=== PATIENT | female | born 1990 | race Caucasian/White ===

== ENCOUNTER 2017-02-15 18:03 | Emergency (ER) | payer OTHER ==
[~2017-02-15] VITALS: Ht 170.2 cm; Wt 90.9 kg
[~2017-02-15 18:03] MED LIST: IRON1TAB97 PO
[2017-02-15 18:07] VITALS: BP 148/107; PULSE 99; RESP 18; O2SAT 96
[2017-02-15] MEDS ORDERED: 0.9% Sodium Chloride 1,000 ML IV ONE (20:03)
[2017-02-15] MEDS ORDERED: MetoCLOpramide 5 mg/mL 2 mL Inj IVPUSH ONE (20:05)
[2017-02-15 20:28] LABS: APPEARANCE,URINE HAZY (CLEAR,HAZY); COLOR,URINE YELLOW (YELLOW); OCCULT BLOOD,URINE NEGATIVE (NEGATIVE); PH,URINE 6.5 (5.0-8.0); UROBILINOGEN,URINE NORMAL (NORMAL)
--- NOTE | 2017-02-15 21:41 | ED.REPORT ---
HPI-Headache Date of Service February 15, 2017 ED Provider: Broderick Leal MD Pt is a 26 y/o female w/ a hx of migraines presenting to the ED c/o [place] onset 4 days ago. She states it feels like something is jammed into her head on the left side. She has been experiencing migraine headaches for the past year and this headache is similar in character but increased in severity. Pt c/o associated photophobia. Pt denies phonophobia, fever, chills, neck pain, head trauma, nausea, vomiting, recent travel, numbness or weakness, vision changes. Nursing Notes Stated Complaint: MIGRAINES/PAIN IN BOTH EARS Chief Complaint: Headache Nursing Notes Reviewed: Yes Allergies: Coded Allergies: No Known Allergies (Verified Allergy, Unknown, 02/15/17) Scheduled Iron,Carbonyl/Vit C/Vit B12/FA (Iron 100 Plus Tablet) 1 Each Tablet 2 EACH PO BID General Time Seen by MD: 19:27 Chief Complaint Headache Hx Obtained From: Patient Arrived By: Walk-in Sudden in Onset?: No Onset Occurred: 4 days ago Symptom Duration: Since onset Location: : Generalized Quality: Painful Severity: Current: Moderate Severity: Maximum: Moderate Similar Sx Previous: Yes Past Medical History Past Medical History Anemia Recurrent right ear infections Migraines Past Surgical History Cholecystectomy Family History Noncontributory Smoking History Current Every Day Smoker Social History Alcohol Use: Denies alcohol use Drug Use: Denies drug use Other Social History: Ambulatory Status Independent Review of Systems Constitutional: Denies: Chills, Fever Musculoskeletal: Denies: Myalgia, Neck pain Neurologic: Reports: Headache, Denies: Bladder dysfunction, Bowel dysfunction, Focal weakness, Lightheaded, Numbness, Vision change, Weakness Complete sys rev & neg: except as marked. Physical Exam Initial Vital Signs Vital Signs (First) Date Time Temp Pulse Resp B/P Pulse Ox O2 Delivery O2 Flow Rate FiO2 02/15/17 18:07 37.0 99 18 148/107 96 Room Air Initial VS: Reviewed, Vital signs normal ENT: Mucous membranes moist, Conjunctiva normal, No scleral icterus Respiratory: Breath sounds normal, Clear to auscultation, No respiratory distress Cardiovascular: Regular rate & rhythm, Heart sounds normal, Intact distal pulses Abdomen / GI: Soft, Non-tender Extremities: Vascular intact, Neuro intact, No swelling, No tenderness Skin: Warm, Dry, No cyanosis Psychiatric: Mood/affect normal, Behavior normal, Normal thought content General/Constitutional: Awake, Alert, No acute distress, Well appearing, Cooperative, Not toxic appearing Head / Eyes: Atraumatic, Normocephalic, PERRL Neck: Atraumatic, Supple, No meningismus, Full range of motion Neurologic: Oriented X3, Speech NL, No motor deficits, No sensory deficits, CN II - XII intact, Cerebellar NL, Memory NL Interpretation & Diagnostics Lab Results Interpretation Test 02/15/17 20:13 Urine Color Yellow (YELLOW) Urine Appearance Hazy (CLEAR,HAZY) Urine pH 6.5 (5.0-8.0) Urine Specific Chancellor 1.020 (1.003-1.035) Urine Protein Negativemg/dL (NEG,TRACE) Urine Glucose (UA) Negativemg/dL (NEGATIVE) Urine Ketones Negativemg/dL (NEGATIVE) Urine Occult Blood Negative (NEGATIVE) Urine Nitrite Positive (NEGATIVE) Urine Bilirubin Negative (NEGATIVE) Urine Urobilinogen Normalmg/dL (NORMAL) Urine Leukocyte Esterase Negative (NEGATIVE) Urine RBC 0-2/hpf (0-2) Urine WBC 0-5/hpf (0-5) Urine Epithelial Cells None/hpf (NONE-MOD) Urine Crystals None seen (NONE SEEN) Urine Bacteria Moderate/hpf (NONE-FEW) Urine Hyaline Casts None/lpf (NONE) Urine Granular Casts None seen (NONE SEEN) Urine Waxy Casts None seen (NONE SEEN) Urine Red Blood Cell Casts None seen (NONE SEEN) Urine White Blood Cell Casts None seen (NONE SEEN) Urine Mucus None seen (None Seen) Urine Trichomonas None seen (NONE SEEN) Urine Yeast None (NONE SEEN) Urinalysis Comment None Urine Culture Reflexed Indicated Re-Eval/Medical Decision Med Decision/Clinical Course In summary, pt is a 26 F with past medical history significant for migraine, who presents with headache, similar to priors though more persistent. Our primary and secondary assessment reveals an awake, alert patient in no acute distress. Hemodynamically stable and afebrile. Exam reveals normal neurologic exam. Labs notable as below: Urine dip: negative UA: positive nitrates, unconvincing for UTI Suspect the patient's headache represents a migraine or tension type headache. Considered other causes of headache to include: Subdural hemorrhage, subarachnoid hemorrhage, [employer] tumor, meningitis, encephalitis, venous sinus thrombosis, dissection, temporal arteritis, intracranial hypertension ( psuedotumor cerebri), sinusitis or cervicalgia, although these are less likely based on the history, exam, lab, and findings as noted above. Based on this, I feel that imaging would be low yield and is not warranted at this time. Discussed the risks and benefits of this with the patient who is in agreement. Also discussed with the patient at length that if symptoms change, worsen, or persist, should return to the ER for reevaluation. They understand and agree with the plan. Given the patient's workup, feel they are safe for discharge. The patient was given IV fluids, Toradol, Reglan and Benadryl and reported complete resolution of her headache. Re-Evaluation/Progress : Time of Eval: 21:42 )( Patient Status: Condition resolved, Complete relief, Pain resolved Re-Evaluation/Progress Note: Pt rechecked. Informed pt of plan for treatment. Pt understands and agrees with plan for treatment. F/U instructions and RTER warnings given. All questions addressed. Counseled Regarding: Diagnosis, Lab results, Need for follow-up, When/why to return to ED Discharge & Departure Impression: Primary Impression: Headache Headache type: unspecified Headache chronicity pattern: acute headache Intractability: not intractable Qualified Code: R51 - Headache Additional Impression: Migraine headache Migraine type: unspecified Status migrainosus presence: without status migrainosus Intractability: not intractable Qualified Code: G43.909 - Migraine, unspecified, not intractable, without status migrainosus Disposition: Home Discharge Condition All VS Reviewed: Yes Condition: Stable Patient Instructions: Acute Headache (GEN) Additional Instructions: Thank you for seeking care at the emergency room. It is difficult for us to make definitive diagnoses in the ED but we believe that you are experiencing a migraine headache. Our primary goal today in the ED was to evaluate you for any life-threatening conditions. Your evaluation was reassuring. The urine analysis was normal. You should follow-up with your primary doctor in the next week. You should return to the ED immediately if you develop fevers, vomiting, vision changes, one-sided numbness or weakness, neck pain, or any other concerning signs or symptoms. Thank you for letting us partake in your care today. Referrals: [facility]EO JONES (PCP) Scribe Attestation Portions of this note were transcribed by Rich Kerr. I, Dr. Leal personally performed the history, physical exam and medical decision-making; I reviewed and confirmed the accuracy of the information in the transcribed note. Signed by Yoselin Khan, 02/15/17 - 2012 copies to: [facility] [place] Beck O MD February 15, 2017 21:41 RICH KERR February 15, 2017 21:45
[2017-02-15 21:59] VITALS: BP 131/64; PULSE 99; RESP 14; O2SAT 97
[2017-02-18] MEDS ORDERED: SULF1TAB7 PO (09:52)
== END 2017-02-15 22:01 | disposition home or self-care (01) ==
LOC: SED 18:03
DX: G43.909 Migraine, unspecified, not intractable, without status migrainosus (principal); F17.200 Nicotine dependence, unspecified, uncomplicated
CPT/HCPCS: 81000; 81025; 87077; 87086; 87088; 87186; 96374; 96375; 99284; J1200; J1885; J2765; J7030